=== PATIENT | male | born 1980 | race African-American/Black ===

== ENCOUNTER 2021-06-26 11:56 | Emergency (ER) | payer MEDICAID ==
[~2021-06-26] VITALS: Ht 175.3 cm; Wt 88.0 kg
[2021-06-26 12:06] VITALS: BP 136/93
[2021-06-26] MEDS ORDERED: TAMS-11 MT (12:17)
== END 2021-06-26 12:28 | disposition home or self-care (01) ==
LOC: ER 12:11
DX: Z76.0 Encounter for issue of repeat prescription (principal)
CPT/HCPCS: 99281; 99283